=== PATIENT | female | born 1940 | race Caucasian/White ===

== ENCOUNTER 2019-10-19 12:05 | Inpatient (IN) | payer MEDICARE, MEDICAID, SELFPAY ==
[2019-10-19] VITALS (8 sets, daily range): BP systolic 129–175; BP diastolic 55–89; PULSE 75–95; RESP 15–20; TEMP 36.6–36.7; O2SAT 95–100; BMI 32.5
--- NOTE | ~2019-10-19 | XR_ITS ---
EXAMINATION: XR chest 2V DATE: 10/21/2019 10:34 INDICATION: Worsening abdominal breath sounds. TECHNIQUE: Frontal and lateral views of the chest were obtained. COMPARISON: Chest 2 views 10/19/2019 FINDINGS: There is pleural thickening in left mid and upper lung zones with adjacent mild scarring. T here are airspace opacities in right lower lung zone. No pleural effusion or pneumothorax. The heart size is normal. There are old healed right rib fractures. IMPRESSION: 1. Worsened airspace opacities in right lower lung zone, consistent with atelectasis versus pneumonia . 2. Mild scarring at left mid and upper lung zones. Reviewed, dictated and finalized at location A. IMPRESSION: 1. Worsened airspace opacities in right lower lung zone, consistent with atelec tasis versus pneumonia. 2. Mild scarring at left mid and upper lung zones.
--- NOTE | ~2019-10-19 | US_ITS ---
EXAMINATION: US venous doppler [facility] DATE: 10/20/2019 11:01 INDICATION: Lower limb edema. TECHNIQUE: Grayscale ultrasound images without and with compression and Doppler ultrasound images of the bilateral lower extremity veins were obtained. COMPARISON: None. FINDINGS: The visualized portions of right common femoral vein, profunda (deep) femoral vein, femoral vein, pop liteal vein, peroneal veins, posterior tibial veins, and greater saphenous vein outflow are patent. The visualized portions of left common femoral vein, profunda femoral vein, femoral vein, popliteal v ein, peroneal veins, posterior tibial veins, and greater saphenous vein outflow are patent. IMPRESSION: 1. No deep venous thrombosis. Reviewed, dictated and finalized at location A.
--- NOTE | ~2019-10-19 | US_ITS ---
EXAMINATION: US right upper quadrant DATE: 10/20/2019 11:01 INDICATION: Abnormal liver function tests. TECHNIQUE: Multiple grayscale and Doppler ultrasound images of the abdomen were obtained. COMPARISON: Ultrasound 06/16/2017 FINDINGS: The visualized portions of the head of the pancreas are normal. The liver is normal without focal lesion. No liver surface nodularity. There is normal flow in main portal vein. The gallbladder is absent. The common duct is normal and measures 5 mm. IMPRESSION: 1. Normal right upper quadrant ultrasound status post cholecystectomy. Reviewed, dictated and finalized at location A.
--- NOTE | ~2019-10-19 | XR_ITS ---
EXAMINATION: XR chest 2V DATE: 10/19/2019 14:35 INDICATION: Hypoglycemia. TECHNIQUE: Frontal and lateral views of the chest were obtained. COMPARISON: Chest single view 07/23/2017 FINDINGS: There is chronic mild pleural thickening at left mid and upper lung zones with adjacent chr onic mild scarring. There are mild airspace opacities in the lower lung zones. No pleural effusion or pneumothorax. The heart size is normal. There are old healed right rib fractures. Surgical clips in the right upper quadrant are likely from cholecystectomy. IMPRESSION: 1. Mild airspace opacities in the lower lung zones, consistent with atelectasis versus pneumonia. 2. Mild scarring in left mid and upper lung zones. Reviewed, dictated and finalized at location A.
[2019-10-19 12:15] LABS: Glucose Point of Care 201 (65-105)
[2019-10-19 13:22] LABS: Basophils Absolute Auto 0.1 K/mm3 (0.0-0.1); Basophils Percent Auto 0.3 % (0.2-1.2); Eosinophils Absolute Auto 0.1 K/mm3 (0-0.3); Eosinophils Percent Auto 0.2 % (0-4.4); Hematocrit 35.9 % (37.0-47.0); Hemoglobin 12.5 g/dL (12.0-15.0); Immature Granulocyte Absolute 0.28 K/mm3 (0.00-0.031); Lymphocytes Percent Auto 5.2 % (18.3-44.2); Mean Corpuscular HGB Conc 34.8 g/dl (32-36); Mean Corpuscular Hemoglobin 32.2 pg (26-34); Mean Corpuscular Volume 92.5 fl (80-100); Mean Platelet Volume 11.9 fl (7.4-10.4); Monocytes Absolute Auto 1.7 K/mm3 (0.1-0.6); Monocytes Percent Auto 6.2 % (2.6-8.5); Neutrophils Absolute Auto 23.6 K/mm3 (1.3-6.7); Neutrophils Percent Auto 87.1 % (45.5-73.1); Platelet Count Result 193 k/mm3 (150-375); Red Blood Count 3.88 M/mm3 (4.2-5.4); Red Cell Distribution Width 12.9 % (11.5-14.5); White Blood Count 27.1 K/mm3 (4.5-10.0)
[2019-10-19 13:33] LABS: Blood Urea Nitrogen 22 mg/dL (7-17); Calcium 8.8 mg/dL (8.4-10.2); Carbon Dioxide 28 mmol/L (22-30); Chloride 98 mmol/L (98-107); Estimated CRCL calculation 46 ml/min; Estimated Glomerular Filt Rate 60; Glucose 164 mg/dL (65-105); Potassium 4.2 mmol/L (3.4-5.0); Sodium 137 mmol/L (137-145)
[2019-10-19 14:19] LABS: Add Urine Microscopic? YES; Appearance Urine Clear (Clear); Bilirubin Urine Negative (Negative); Blood Urine Negative (Negative); Color Urine Straw (Yellow); Glucose Urine UA 1+ mg/dL (Negative); Ketones Urine Negative (Negative); Leukocyte Esterase Ur Negative LEU/UL (Negative); Mucus Urine Rare /lpf; Nitrate Urine Negative (Negative); Protein Urine Negative (Negative); Specific Grav Ur 1.011 (1.001-1.035); Squamous Epithelial Cell Urine Rare /hpf (Few); Urobilinogen Urine Negative mg/dL (<2.0); WBC Urine 0-3 /hpf
[2019-10-19 14:30] LABS: Glucose Point of Care 233 (65-105)
--- NOTE | 2019-10-19 15:07 | ED.RECABL ---
HPI - Recheck/Abnormal Lab/Rx General Chief Complaint: Recheck/Abnormal Lab/Rx Stated Complaint: LOW BLOOD SUGAR History of Present Illness HPI narrative: Patient is an 79-year-old schizophrenic who presents the ER with hypoglycemia. She is diabetic. She reports she ate breakfast this morning but is also reporting that her fingers are snakes. History is fairly limited. Daughter present reports that she has been sneezing more than usual but has not seen her mom for months. Patient received glucagon as well as D10 and her blood sugars normalized at this time. Patient reported to the nurse that she ate eggs but told me she ate a doughnut. Related Data Allergies Allergy/AdvReac Type Severity Reaction Status Date / Time Penicillins Allergy Mild Unknown Unverified 04/08/19 08:20 sulfamethoxazole Allergy Unknown Unknown Unverified 04/08/19 08:20 trimethoprim Allergy Unknown Unknown Unverified 04/08/19 08:20 Review of Systems Review of Systems: ROS unobtainable: Yes unobtainable due to mental status PMFSH Past Medical History Medical History (Updated 10/19/19 @ 15:32 by Frankie Quevedo MD) Alzheimers disease Anxiety CHF (congestive heart failure) Constipation Dementia Diabetes Gall stones HLD (hyperlipidemia) HTN (hypertension) Hypothyroidism Pneumonia Schizophrenia Surgical History Surgical History (Updated 04/08/19 @ 08:59 by Mary Beth Oviedo) No significant past surgical history Social History Social History (Updated 04/08/19 @ 08:59 by Mary Beth Oviedo) Smoking status: Unknown if ever smoked Gender identity (if verbalized by the patient): Female Exam Narrative: Exam Narrative: GENERAL: Well-appearing, well-nourished, and in no acute distress. HEAD: Normocephalic, atraumatic. ENT: NMucous membranes moist. NECK: Supple. CHEST: Clear to auscultation. No respiratory distress. HEART: Regular rate and rhythm. Normal peripheral pulses. ABDOMEN: Soft, nontender, nondistended. EXTREMITIES: Normal range of motion. No edema. SKIN: Warm, dry, no rash. NEURO: Alert and oriented x1. Course Course Emergency Course: Admit to the hospitalist service given significant leukocytosis with hyperglycemia and concerns for pneumonia. IV antibiotics ordered. We will also order a COVID swab so patient can be placed in a longterm at the request of the daughter. Vital Signs Vital signs: Vital Signs Temperature 97.8 F 10/19/19 12:15 Pulse Rate 77 10/19/19 12:15 Respiratory Rate 17 10/19/19 12:15 Blood Pressure 129/79 10/19/19 12:15 Pulse Oximetry 100 10/19/19 12:15 Temperature 97.8 F 10/19/19 12:15 Pulse Rate 77 10/19/19 12:15 Respiratory Rate 17 10/19/19 12:15 Blood Pressure 129/79 10/19/19 12:15 Pulse Oximetry 100 10/19/19 12:15 MDM - Recheck/Abnormal Lab/Rx Lab Data Result diagrams: 10/19/19 13:13 10/19/19 13:13 Labs: Lab Results 10/19/19 10/19/19 10/19/19 Range/Units 12:12 13:13 13:13 WBC 27.1 H (4.5-10.0) K/mm3 RBC 3.88 L (4.2-5.4) M/mm3 Hgb 12.5 (12.0-15.0) g/dL Hct 35.9 L (37.0-47.0) % MCV 92.5 (80-100) fl MCH 32.2 (26-34) pg MCHC 34.8 (32-36) g/dl RDW 12.9 (11.5-14.5) % Plt Count 193 (150-375) k/mm3 MPV 11.9 H (7.4-10.4) fl Immature Gran % (Auto) 1.0 H (0-0.5) % Neut % (Auto) 87.1 H (45.5-73.1) % Lymph % (Auto) 5.2 L (18.3-44.2) % Grand % (Auto) 6.2 (2.6-8.5) % Eos % (Auto) 0.2 (0-4.4) % Baso % (Auto) 0.3 (0.2-1.2) % Lymph # (Auto) 1.40 (0.9-3.2) K/mm3 Grand # (Auto) 1.7 H (0.1-0.6) K/mm3 Eos # (Auto) 0.1 (0-0.3) K/mm3 Baso # (Auto) 0.1 (0.0-0.1) K/mm3 Abs Immat Gran (auto) 0.28 H (0.00-0.031) K/mm3 Absolute Neuts (auto) 23.6 H (1.3-6.7) K/mm3 Absolute Nucleated RBC 0.0 (0.0-0.012) K/mm3 Nucleated RBC % 0.0 (0.0-0.2) % Sodium 137 (137-145) mmol/L Potassium 4.2 (3.4-5.0) mmol/L Chloride 98 (9
--- NOTE | 2019-10-19 17:09 | PC.NURSE ---
This RN into pts room to change depends. Pt tried to kick this RN when pulling down her pants
--- NOTE | 2019-10-19 17:15 | PC.NURSE ---
This patient, Sarahy Real, was admitted to [facility] Room 332-01. Patient/family oriented to hospital policies and general routines including ID bracelet, bed and alarms, visiting hours, pain management, procedures, bathroom and other care routines, personal items, smoking policy, room service/diet, and visiting hours. Valuables list has been completed. Information on how to activate the Rapid Response Team has been discussed. Patient/Family are encouraged to report perceived risks to care and to ask questions if they do not understand what they are told or what they should do.
[2019-10-19 17:17] LABS: Hemoglobin A1C 6.9 % (<5.7)
[2019-10-19] MEDS: SODIUM CHLORIDE 0.9% IV 1,000 ML 100 ML IV CONT (18:11)
[2019-10-19] MEDS: INSULIN ASPART (*BKC) 100 UNITS/ML SUB-Q (18:12)
[2019-10-19 18:35] LABS: Glucose Point of Care 220 (65-105)
[2019-10-19 19:10] LABS: Alanine Aminotransferase 39 U/L (4-35); Albumin Level 3.7 g/dL (3.5-5.1); Alkaline Phosphatase 139 U/L (38-126); Aspartate Amino Transferase 56 U/L (14-36); Bilirubin,Total 0.3 mg/dL (0.2-1.3); Lactate Dehydrogenase 407 U/L (313-618)
--- NOTE | 2019-10-19 20:00 | PM.IMHP ---
H&P: HPI History of Present Illness Chief complaint: Hypoglycemia. Narrative: Sarahy Real is an 82-year-old female with insulin-dependent type 2 diabetes mellitus, schizophrenia, and hypertension who presented to the emergency department earlier today via EMS from [facility] for evaluation of hyperglycemia. She is not able to provide an accurate history due to her schizophrenia and dementia, as she answers every question that I ask her inappropriately and with bizarre answers. As such, a majority of this history is obtained via a review of her electronic medical records. According to the EMS run report, she was given her insulin this morning before breakfast and not long prior to arrival she was found unconscious and diaphoretic with a glucose of 22. She was given glucagon and EMS was summoned. On their arrival her glucose was 37 and a D10 infusion was started with improvement in mentation. At the time my evaluation she is awake and appears to be watching television. She is aware that she is in a hospital but she does not know why she was brought here. Throughout our conversation she randomly describes children that are at the foot of her bed or she begins referring to her fingers as snakes. Chest x-ray done emergency department was read as having airspace opacities in the lower lung zones consistent with atelectasis versus pneumonia. [place] [id number]. I was told that there several cases of COVID-19 at her care facility, and she is being admitted in this setting. She has no complaints at the time of my evaluation. Review of Systems Review of Systems: Narrative: A review of systems is unable to be obtained accurately given her dementia and schizophrenia. [facility] Past Medical History Medical History (Updated 10/19/19 @ 22:56 by Mairanne Madrid PA-C) Anxiety Congestive heart failure Poorly documented history of such. Dementia Gastroesophageal reflux disease Hyperlipidemia Hypertension Hypothyroidism Insulin dependent type 2 diabetes mellitus Schizophrenia Urinary tract infection due to extended-spectrum beta lactamase (ESBL) producing Escherichia coli Vitamin D deficiency Surgical History Surgical History (Updated 10/19/19 @ 15:51 by Marianne Madrid PA-C) History of cholecystectomy History of hysterectomy Family History Family History (Updated 10/19/19 @ 15:52 by Marianne Madrid PA-C) Father Tuberculosis Mother Tuberculosis Other Cancer Social History Social History (Updated 10/19/19 @ 22:56 by Marianne Madrid PA-C) Social History: She is a long-term resident at [facility]. Her daughter, Angela Gardner, is her healthcare power of ip technology transactions attorney. No mention of alcohol, tobacco, or drug use. Smoking status: Unknown if ever smoked Alcohol intake: never Substance use: never Gender identity (if verbalized by the patient): Female Spiritual care concerns: No Meds Home Medications and Allergies Home Medications Medication Instructions Recorded Confirmed Type acetaminophen 650 mg PO Q4H PRN 10/19/19 10/19/19 History aspirin [Aspirin Childrens] 81 mg PO DAILY 10/19/19 10/19/19 History clopidogrel 75 mg PO DAILY 10/19/19 10/19/19 History ergocalciferol (vitamin D2) 1,250 mcg PO WEEKLY 10/19/19 10/19/19 History [Vitamin D2] furosemide 40 mg PO DAILY 10/19/19 10/19/19 History glucagon HCl [Glucagon (HCl) 1 mg IM PRN PRN 10/19/19 10/19/19 History Emergency Kit] insulin NPH and regular human 20 unit SUBCUT HS 10/19/19 10/19/19 History [Novolin 70/30 U-100 Insulin] insulin NPH and regular human 29 unit SUBCUT DAILY 10/19/19 10/19/19 History [Novolin 70/30 U-100 Insulin] insulin aspart U-100 [Novolog 1 sliding scale dose SUBCUT 10/19/19 10/19/19 History U-100 Insulin aspart] USEASDIRECTD levothyroxine 100 mcg PO DAILY 10/19/19 10/19/19 History lisinopril 20 mg PO DAILY 10/19/19 10/19/19 History lop
[2019-10-19 23:30] LABS: Glucose Point of Care 152 (65-105)
[2019-10-19] MEDS: MAGNESIUM SULF 1 GM/D5W 100 ML 1 GM/100 ML BAG IVPB (23:55)
[2019-10-19] MEDS: MAGNESIUM SULF 2 GM/WATER 50ML 2 GM/50 ML BAG IVPB (23:55)
[2019-10-20] VITALS (7 sets, daily range): BP systolic 114–130; BP diastolic 41–63; PULSE 80–88; RESP 16–22; TEMP 36.2–37.1; O2SAT 94–96
[2019-10-20 03:17] LABS: Glucose Point of Care 196 (65-105)
[2019-10-20 06:44] LABS: Basophils Absolute Auto 0.1 K/mm3 (0.0-0.1); Basophils Percent Auto 0.5 % (0.2-1.2); Eosinophils Absolute Auto 0.1 K/mm3 (0-0.3); Eosinophils Percent Auto 1.1 % (0-4.4); Hematocrit 29.2 % (37.0-47.0); Hemoglobin 10.3 g/dL (12.0-15.0); Immature Granulocyte Absolute 0.04 K/mm3 (0.00-0.031); Immature Granulocyte Percent A 0.4 % (0-0.5); Mean Corpuscular HGB Conc 35.3 g/dl (32-36); Mean Corpuscular Volume 90.7 fl (80-100); Mean Platelet Volume 11.9 fl (7.4-10.4); Monocytes Absolute Auto 1.1 K/mm3 (0.1-0.6); Monocytes Percent Auto 11.2 % (2.6-8.5); Neutrophils Absolute Auto 6.3 K/mm3 (1.3-6.7); Neutrophils Percent Auto 62.8 % (45.5-73.1); Platelet Count Result 162 k/mm3 (150-375); Red Blood Count 3.22 M/mm3 (4.2-5.4); Red Cell Distribution Width 12.5 % (11.5-14.5)
[2019-10-20 06:56] LABS: Alanine Aminotransferase 36 U/L (4-35); Albumin Level 3.1 g/dL (3.5-5.1); Alkaline Phosphatase 125 U/L (38-126); Aspartate Amino Transferase 40 U/L (14-36); Bilirubin,Total 0.6 mg/dL (0.2-1.3); Blood Urea Nitrogen 19 mg/dL (7-17); Carbon Dioxide 27 mmol/L (22-30); Chloride 99 mmol/L (98-107); Estimated CRCL calculation 51 ml/min; Estimated Glomerular Filt Rate > 60; Glucose 184 mg/dL (65-105); Potassium 4.7 mmol/L (3.4-5.0); Sodium 132 mmol/L (137-145)
[2019-10-20] MEDS: LEVOTHYROXINE SODIUM 100 MCG TABLET PO (07:01)
[2019-10-20 07:50] LABS: Hepatitis B Surface Antigen Negative (Negative)
[2019-10-20 07:56] LABS: HAV RESULT Negative (Negative); Hepatitis B Core IgM Result Negative (Negative)
[2019-10-20 08:08] LABS: Hepatitis C Virus Antibody Negative (Negative)
[2019-10-20] MEDS: FUROSEMIDE 40 MG TABLET PO (08:59)
[2019-10-20] MEDS: CLOPIDOGREL BISULFATE 75 MG TABLET PO (09:00)
[2019-10-20] MEDS: METOPROLOL SUCCINATE EXT REL 50 MG TABCR PO (09:00)
[2019-10-20] MEDS: lisinopriL 20 MG TABLET PO (09:01)
[2019-10-20] MEDS: PANTOPRAZOLE SOD SESQUIHYDRATE 20 MG TAB PO (09:01)
[2019-10-20] MEDS: ASPIRIN 81 MG CHEWABLE TABLET PO (09:01)
[2019-10-20 09:38] LABS: Glucose Point of Care 200 (65-105)
[2019-10-20] MEDS: INSULIN ASPART (*BKC) 100 UNITS/ML SUB-Q ×2 (12:10→17:32)
[2019-10-20 12:15] LABS: Glucose Point of Care 218 (65-105)
[2019-10-20 13:39] LABS: SARS-CoV-2 RNA PCR Negative
--- NOTE | 2019-10-20 15:48 | PM.IMPN ---
Progress Note: A&P Assessment and Plan (1) Leukocytosis: Code(s): D72.829 - Elevated white blood cell count, unspecified Status: Acute Assessment and Plan: -----resolved today. Etiology could be stress response from hypoglycemic event or possibly pneumonia. Chest x-ray shows possible pneumonia and the patient has coarse crackles. She has not had fever since being here. Will continue ceftriaxone and azithromycin at this time. She had no abdominal pain on my exam and the right upper quadrant ultrasound is normal. She had 1 episode of liquid diarrhea and I have asked the nurse to let me know if she has any additional diarrhea episodes and we can send it for C diff testing but this seems less likely at this time. Continue to monitor. COVID-19 negative. (2) Hypoglycemia: Code(s): E16.2 - Hypoglycemia, unspecified Status: Acute Assessment and Plan: -----patient is severely demented and is 79 years old. Her A1c is 6.9. This is a little too tightly controlled and we are going to decrease her insulin at discharge. For now will continue sliding scale insulin. She was given glucagon and D10 infusion yesterday. (3) Insulin dependent type 2 diabetes mellitus: Code(s): E11.9 - Type 2 diabetes mellitus without complications; Z79.4 - senior care (current) use of insulin Status: Acute Assessment and Plan: -----see above. (4) Schizophrenia: Code(s): F20.9 - Schizophrenia, unspecified Status: Acute Assessment and Plan: -----patient is calm and collective today. Continue olanzapine and valproic acid. (5) Hypothyroidism: Code(s): E03.9 - Hypothyroidism, unspecified Status: Acute Assessment and Plan: -----. Continue levothyroxine (6) Gastroesophageal reflux disease: Code(s): K21.9 - Gastro-esophageal reflux disease without esophagitis Status: Acute Assessment and Plan: -----continue pantoprazole. Time Spent With Patient Time with patient: 25 - 35 minutes Subjective Date/time seen: 10/20/19 15:48 Interval history: Pt is a significantly demented 79-year-old here for hypoglycemia and pneumonia. Patient was seen today and is not able to hold a fluent conversation. She answers yes to all of my questions. RN, Rochelle, states that the group home says that she is alert and oriented to herself only and often hallucinates and does not make much sense. No events overnight reported by nursing staff. Review of Systems Review of Systems: All systems reviewed & are unremarkable except as noted in HPI and below Exam Narrative: Exam Narrative: General: Elderly patient resting comfortably in bed in no acute distress HEENT: normocephalic Neck: supple Neuro: Alert and oriented to herself only. She did not know where she was, her birthday, or the year. She had 5/5 strength in the upper and lower extremities. She would not cooperate for a cranial nerve exam. CV:RRR Resp: Coarse crackles worse in the left lung also heard in the right. No wheezing. Patient had no conversational dyspnea or retractions Abd: Soft, non distended. No pain to palpation. Positive bowel sounds Extremities: No swelling, erythema, or pain to palpation. Objective Data Vital Signs Vital Signs: Vital Signs - 24 hr 10/19/19 17:07 10/19/19 17:15 10/19/19 18:00 Temperature 98.0 F 98.1 F Pulse Rate 75 87 95 Respiratory Rate 18 18 18 Blood Pressure 162/89 H 154/55 H 141/67 H Pulse Oximetry 100 98 99 10/19/19 19:45 10/19/19 22:00 10/20/19 02:00 Temperature 98 F 98.6 F Pulse Rate 95 83 Respiratory Rate 20 20 Blood Pressure 156/75 H 117/50 L Pulse Oximetry 95 95 94 10/20/19 06:00 10/20/19 09:00 10/20/19 10:00 Temperature 98.7 F 98.5 F Pulse Rate 82 80 88 Respiratory Rate 20 18 Blood Pressure 130/63 118/47 L Pulse Oximetry 95 95 10/20/19 14:00 Temperature 97.1 F L Pulse Rate 84 Respiratory Rate 22
[2019-10-20 17:35] LABS: Glucose Point of Care 286 (65-105)
[2019-10-20 23:01] LABS: Glucose Point of Care 227 (65-105)
[2019-10-21 02:00] VITALS: BP 138/46; PULSE 81; RESP 18; TEMP 36.2; O2SAT 98
[2019-10-21 06:00] VITALS: BP 121/49; PULSE 78; RESP 18; TEMP 36.7; O2SAT 96
[2019-10-21] MEDS: LEVOTHYROXINE SODIUM 100 MCG TABLET PO (06:00)
[2019-10-21 06:34] LABS: Hematocrit 30.5 % (37.0-47.0); Hemoglobin 10.4 g/dL (12.0-15.0); Mean Corpuscular HGB Conc 34.1 g/dl (32-36); Mean Corpuscular Hemoglobin 31.5 pg (26-34); Mean Corpuscular Volume 92.4 fl (80-100); Mean Platelet Volume 12.5 fl (7.4-10.4); Platelet Count Result 165 k/mm3 (150-375); Red Cell Distribution Width 12.6 % (11.5-14.5); White Blood Count 7.7 K/mm3 (4.5-10.0)
[2019-10-21 06:54] LABS: Alanine Aminotransferase 39 U/L (4-35); Albumin Level 3.1 g/dL (3.5-5.1); Alkaline Phosphatase 121 U/L (38-126); Aspartate Amino Transferase 36 U/L (14-36); Bilirubin,Total 0.2 mg/dL (0.2-1.3); Blood Urea Nitrogen 20 mg/dL (7-17); Calcium 8.2 mg/dL (8.4-10.2); Carbon Dioxide 26 mmol/L (22-30); Chloride 104 mmol/L (98-107); Estimated CRCL calculation 45 ml/min; Estimated Glomerular Filt Rate 60; Glucose 192 mg/dL (65-105); Magnesium 1.7 mg/dL (1.6-2.3); Phosphorus 3.5 mg/dL (2.5-4.5); Potassium 5.1 mmol/L (3.4-5.0); Sodium 135 mmol/L (137-145)
[2019-10-21 08:28] LABS: Glucose Point of Care 211 (65-105)
[2019-10-21 09:09] VITALS: PULSE 68
[2019-10-21] MEDS: METOPROLOL SUCCINATE EXT REL 50 MG TABCR PO (09:09)
[2019-10-21] MEDS: PANTOPRAZOLE SOD SESQUIHYDRATE 20 MG TAB PO (09:09)
[2019-10-21] MEDS: CLOPIDOGREL BISULFATE 75 MG TABLET PO (09:09)
[2019-10-21] MEDS: ASPIRIN 81 MG CHEWABLE TABLET PO (09:09)
--- NOTE | 2019-10-21 09:10 | PM.IMPN ---
Progress Note: A&P Assessment and Plan (1) Leukocytosis: Code(s): D72.829 - Elevated white blood cell count, unspecified Status: Acute Assessment and Plan: -----resolved today. Etiology could be stress response from hypoglycemic event or possibly pneumonia. Chest x-ray shows possible pneumonia and the patient has coarse crackles. She has not had fever since being here. Will continue ceftriaxone and azithromycin at this time. She had no abdominal pain on my exam and the right upper quadrant ultrasound is normal. No diarrhea at this time. COVID-19 negative. I am going to repeat a chest x-ray and do a swallow study since the patient is severely demented and her lungs sound worse today. If these are better she may be able to discharge tomorrow back to her [facility]. (2) Hypoglycemia: Code(s): E16.2 - Hypoglycemia, unspecified Status: Acute Assessment and Plan: -----patient is severely demented and is 79 years old. Her A1c is 6.9. This is a little too tightly controlled and we are going to decrease her insulin at discharge. For now will continue sliding scale insulin. She was given glucagon and D10 infusion on admission. will restart lower dose nph. She ate her entire breakfast today. (3) Insulin dependent type 2 diabetes mellitus: Code(s): E11.9 - Type 2 diabetes mellitus without complications; Z79.4 - [facility] (current) use of insulin Status: Acute Assessment and Plan: -----see above. (4) Schizophrenia: Code(s): F20.9 - Schizophrenia, unspecified Status: Acute Assessment and Plan: -----patient is calm and collective today. Continue olanzapine and valproic acid. (5) Hypothyroidism: Code(s): E03.9 - Hypothyroidism, unspecified Status: Acute Assessment and Plan: -----. Continue levothyroxine (6) Gastroesophageal reflux disease: Code(s): K21.9 - Gastro-esophageal reflux disease without esophagitis Status: Acute Assessment and Plan: -----continue pantoprazole. (7) Pneumonia: Code(s): J18.9 - Pneumonia, unspecified organism Status: Acute Assessment and Plan: -----as stated above, patient is receiving ceftriaxone and azithromycin. Plan for swallow study today as well as a chest x-ray. (8) Hyperkalemia: Code(s): E87.5 - Hyperkalemia Status: Acute Assessment and Plan: -----patient has a history of this. It is mild and does not he be treated at this time. Will hold lisinopril and placed on a low-potassium diet. Recheck tomorrow. Subjective Date/time seen: 10/21/19 09:10 Interval history: Pt is a significantly demented 79-year-old here for hypoglycemia and pneumonia. Pt was seen today and is still pleasantly confused. She says her back hurts but when I straightened up her bed, if felt much better. She is eating and drinking fine. She has no complaints. Although she is an unreliable historian, she denies chest pain or shortness of breath today. Exam Narrative: Exam Narrative: General: Elderly patient resting comfortably in bed in no acute distress HEENT: normocephalic Neck: supple Neuro: Alert and oriented to herself only. She did not know where she was, her birthday, or the year. She had 5/5 strength in the upper and lower extremities. CV:RRR Resp: Coarse crackles worse in the left lung also heard in the right. No wheezing. Patient had no conversational dyspnea or retractions Abd: Soft, non distended. No pain to palpation. Positive bowel sounds Extremities: No swelling, erythema, or pain to palpation. Objective Data Vital Signs Vital Signs: Vital Signs - 24 hr 10/20/19 10:00 10/20/19 14:00 10/20/19 18:00 Temperature 98.5 F 97.1 F L 97.5 F L Pulse Rate 88 84 85 Respiratory Rate 18 22 H 20 Blood Pressure 118/47 L 122/58 L 120/54 L Pulse Oximetry 95 96 96 10/20/19 22:00 10/21/19 02:00 10/21/19 06:00 [place]
[2019-10-21] MEDS: INSULIN ASPART (*BKC) 100 UNITS/ML SUB-Q ×3 (09:11→17:31)
[2019-10-21] MEDS: FUROSEMIDE 40 MG TABLET PO (09:11)
[2019-10-21 10:00] VITALS: BP 146/51; PULSE 89; RESP 20; TEMP 36.6; O2SAT 98
--- NOTE | 2019-10-21 12:09 | PCSTNOTE ---
Bedside swallow study completed. Please see ST evaluation for further details.
[2019-10-21 12:11] LABS: Glucose Point of Care 305 (65-105)
[2019-10-21 14:00] VITALS: BP 118/58; PULSE 82; RESP 18; TEMP 36.7; O2SAT 99
[2019-10-21] MEDS: INSULIN HUMAN NPH (*BKC) 100 UNITS/ML 6 UNITS SUB-Q (17:34)
[2019-10-21 18:27] LABS: Glucose Point of Care 240 (65-105)
[2019-10-21 21:10] LABS: Glucose Point of Care 282 (65-105)
[2019-10-21 22:00] VITALS: BP 128/49; PULSE 76; RESP 16; TEMP 36.9; O2SAT 98
[2019-10-22] MEDS: LEVOTHYROXINE SODIUM 100 MCG TABLET PO (05:37)
[2019-10-22 06:00] VITALS: BP 127/30; PULSE 73; RESP 18; TEMP 36.5; O2SAT 100
[2019-10-22 06:45] LABS: Blood Urea Nitrogen 18 mg/dL (7-17); Calcium 8.3 mg/dL (8.4-10.2); Carbon Dioxide 29 mmol/L (22-30); Chloride 103 mmol/L (98-107); Estimated CRCL calculation 57 ml/min; Estimated Glomerular Filt Rate > 60; Glucose 174 mg/dL (65-105); Potassium 4.6 mmol/L (3.4-5.0); Sodium 136 mmol/L (137-145)
[2019-10-22] MEDS: INSULIN HUMAN NPH (*BKC) 100 UNITS/ML 6 UNITS SUB-Q (08:11)
[2019-10-22 08:14] LABS: Glucose Point of Care 190 (65-105)
[2019-10-22] MEDS: CLOPIDOGREL BISULFATE 75 MG TABLET PO (08:14)
[2019-10-22] MEDS: ASPIRIN 81 MG CHEWABLE TABLET PO (08:14)
[2019-10-22] MEDS: PANTOPRAZOLE SOD SESQUIHYDRATE 20 MG TAB PO (08:14)
[2019-10-22 08:20] VITALS: BP 150/66; PULSE 88
[2019-10-22 08:22] VITALS: PULSE 88
[2019-10-22] MEDS: FUROSEMIDE 40 MG TABLET PO (08:22)
[2019-10-22] MEDS: METOPROLOL SUCCINATE EXT REL 50 MG TABCR PO (08:22)
[2019-10-22] MEDS: INSULIN ASPART (*BKC) 100 UNITS/ML SUB-Q ×2 (12:30→17:39)
[2019-10-22 12:54] LABS: Glucose Point of Care 313 (65-105)
[2019-10-22 14:00] VITALS: BP 136/69; PULSE 71; RESP 20; TEMP 36.2; O2SAT 97
--- NOTE | 2019-10-22 14:13 | PM.IMPN ---
Progress Note: A&P Assessment and Plan (1) Leukocytosis: Code(s): D72.829 - Elevated white blood cell count, unspecified Status: Acute Assessment and Plan: -----resolved today. Although it does not show up in the labs, if you go to the lab section and click on the word WBC it will show that she was at 27,000 on admission. Etiology could be stress response from hypoglycemic event or possibly pneumonia. Chest x-ray shows pneumonia and the patient has coarse crackles. She has not had a fever since being here. Will continue ceftriaxone and azithromycin at this time. She had no abdominal pain on my exam and the right upper quadrant ultrasound is normal. No diarrhea at this time. COVID-19 negative. (2) Pneumonia: Code(s): J18.9 - Pneumonia, unspecified organism Status: Acute Assessment and Plan: -----as stated above, patient is receiving ceftriaxone and azithromycin. CXR yesterday showed worsening PNA so she will be kept and monitored for another day or so. Her lung exam sounded better today compared to yesterday. I had ST see her and they said she had no aspiration risk. COVID neg. (3) Hypoglycemia: Code(s): E16.2 - Hypoglycemia, unspecified Status: Acute Assessment and Plan: -----patient is severely demented and is 79 years old. Her A1c is 6.9. This is a little too tightly controlled and we are going to decrease her insulin at discharge. For now will continue sliding scale insulin. She was given glucagon and D10 infusion on admission. NPH was restarted yesterday but she is 313 today so I will increase it again. She may have had the hypoglycemic event from lack of eating from her PNA and now that she is being treated she is eating more. 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 (5) Schizophrenia: Code(s): F20.9 - Schizophrenia, unspecified Status: Acute Assessment and Plan: -----patient is calm and collective today. Continue olanzapine and valproic acid. (6) Hypothyroidism: Code(s): E03.9 - Hypothyroidism, unspecified Status: Acute Assessment and Plan: -----. Continue levothyroxine (7) Gastroesophageal reflux disease: Code(s): K21.9 - Gastro-esophageal reflux disease without esophagitis Status: Acute Assessment and Plan: -----continue pantoprazole. (8) Hyperkalemia: Code(s): E87.5 - Hyperkalemia Status: Acute Assessment and Plan: -----elevated 10/20 but WNL today. patient has a history of this. She was not treated but her lisinopril was held and she was placed on a low potassium diet. Subjective Date/time seen: 10/22/19 14:13 Interval history: Pt is a significantly demented 79-year-old here for hypoglycemia and pneumonia. Pt was seen today and is still pleasantly confused. She has no complaints today.No events from nursing staff overnight. Exam Narrative: Exam Narrative: General: Elderly patient resting comfortably in the chair eating lunch in no acute distress HEENT: normocephalic Neck: supple Neuro: Alert and oriented to herself and birthday. She did not know where she was, her birthday, or the year. She had 5/5 strength in the upper and lower extremities. CV:RRR Resp: Coarse crackles worse in the left lung also heard in the right but these have improved compared to yesterday. No wheezing. Patient had no conversational dyspnea or retractions Abd: Soft, non distended. No pain to palpation. Positive bowel sounds Extremities: No swelling, erythema, or pain to palpation. Objective Data Vital Signs Vital Signs: Vital Signs - 24 hr 10/21/19 22:00 10/22/19 06:00 10/22/19 08:20 Temperature 98.5 F 97.7 F Pulse Rate 76 73 88 Respiratory Rate 16 18 Bl
[2019-10-22] MEDS: INSULIN HUMAN NPH (*BKC) 100 UNITS/ML 10 UNITS SUB-Q (17:40)
[2019-10-22 18:15] LABS: Glucose Point of Care 318 (65-105)
[2019-10-22 22:00] VITALS: BP 129/41; PULSE 80; RESP 20; TEMP 36.6; O2SAT 95
[2019-10-22 22:12] LABS: Glucose Point of Care 326 (65-105)
[2019-10-23] MEDS: LEVOTHYROXINE SODIUM 100 MCG TABLET PO (05:59)
[2019-10-23 06:00] VITALS: BP 124/48; PULSE 73; RESP 18; TEMP 36.7; O2SAT 97
[2019-10-23 06:29] LABS: Hemoglobin 11.1 g/dL (12.0-15.0); Mean Corpuscular HGB Conc 34.7 g/dl (32-36); Mean Corpuscular Volume 92.2 fl (80-100); Mean Platelet Volume 12.1 fl (7.4-10.4); Platelet Count Result 171 k/mm3 (150-375); Red Blood Count 3.47 M/mm3 (4.2-5.4); Red Cell Distribution Width 12.5 % (11.5-14.5); White Blood Count 6.8 K/mm3 (4.5-10.0)
[2019-10-23 06:51] LABS: Blood Urea Nitrogen 17 mg/dL (7-17); CRP 2.4 mg/dL (<1.0); Calcium 8.4 mg/dL (8.4-10.2); Carbon Dioxide 29 mmol/L (22-30); Chloride 100 mmol/L (98-107); Estimated CRCL calculation 57 ml/min; Estimated Glomerular Filt Rate > 60; Glucose 176 mg/dL (65-105); Potassium 4.3 mmol/L (3.4-5.0); Sodium 134 mmol/L (137-145)
[2019-10-23 08:48] VITALS: PULSE 84
[2019-10-23] MEDS: FUROSEMIDE 40 MG TABLET PO (08:48)
[2019-10-23] MEDS: PANTOPRAZOLE SOD SESQUIHYDRATE 20 MG TAB PO (08:48)
[2019-10-23] MEDS: ASPIRIN 81 MG CHEWABLE TABLET PO (08:48)
[2019-10-23] MEDS: METOPROLOL SUCCINATE EXT REL 50 MG TABCR PO (08:48)
[2019-10-23] MEDS: CLOPIDOGREL BISULFATE 75 MG TABLET PO (08:48)
[2019-10-23] MEDS: INSULIN HUMAN NPH (*BKC) 100 UNITS/ML 10 UNITS SUB-Q (08:52)
[2019-10-23] MEDS: INSULIN ASPART (*BKC) 100 UNITS/ML SUB-Q ×2 (08:53→13:17)
[2019-10-23 09:52] LABS: Glucose Point of Care 214 (65-105)
--- NOTE | 2019-10-23 13:15 | PM.DS ---
DS: Admitting Diagnosis Admitting Diagnosis Admitting Diagnosis: Type 2 diabetes mellitus with hypoglycemia without coma DS: Discharge Diagnosis Discharge Diagnosis (1) Hypoglycemia: Code(s): E16.2 - Hypoglycemia, unspecified Status: Acute Assessment and Plan: Date of Service 10/23/19 Ms. Real is an 79yo F with dementia, schizophrenia, and insulin-dependent type 2 diabetes who presented to the ED from the longterm due to hypoglycemia. It was recorded that she had blood sugars in 20s at [place]. She was treated with glucagon and D10 on arrival. Her A1c is 6.9; given her age and dementia she was discharged with a new regimen of decreased insulin doses. Routine labs demonstrated a leukocytosis and she was noted to have coarse breath sounds. CTA chest demonstrated pneumonia and she was treated with IV azithromycin and rocephin. COVID-19 testing negative. She was otherwise stable and cognitively appeared to be at her baseline. Clinically she was improved with the therapy outlined above and was hemodynamically stable for discharge 10/23/19 with lower insulin doses and oral antibiotics to complete the course for treatment of pneumonia. (2) Pneumonia: Qualifiers: Pneumonia type: due to unspecified organism Laterality: unspecified laterality Lung location: unspecified part of lung Qualified Code(s): J18.9 - Pneumonia, unspecified organism Code(s): J18.9 - Pneumonia, unspecified organism Status: Acute Assessment and Plan: Treated with abx. Seen by speech therapy and passed bedside swallow evaluation with no signs or symptoms of aspiration. COVID negative. (3) Insulin dependent type 2 diabetes mellitus: Code(s): E11.9 - Type 2 diabetes mellitus without complications; Z79.4 - predatory animal exterminator (current) use of insulin Status: Acute Assessment and Plan: See above. (4) Schizophrenia: Qualifiers: Schizophrenia type: unspecified Qualified Code(s): F20.9 - Schizophrenia, unspecified Code(s): F20.9 - Schizophrenia, unspecified Status: Acute Assessment and Plan: Calm and cooperative day of discharge maintained on her home olanzapine and valproic acid. (5) Hypothyroidism: Qualifiers: Hypothyroidism type: acquired Qualified Code(s): E03.9 - Hypothyroidism, unspecified Code(s): E03.9 - Hypothyroidism, unspecified Status: Acute Assessment and Plan: Continue levothyroxine. (6) Gastroesophageal reflux disease: Qualifiers: Esophagitis presence: without esophagitis Qualified Code(s): K21.9 - Gastro-esophageal reflux disease without esophagitis Code(s): K21.9 - Gastro-esophageal reflux disease without esophagitis Status: Acute Assessment and Plan: No acute issues, continue PPI. (7) Hyperkalemia: Code(s): E87.5 - Hyperkalemia Status: Resolved Assessment and Plan: Resolved. DS: Summary Time Spent with Patient Time attestation: Total time spent providing and/or coordinating discharge services: 35 minutes Exam Narrative: Exam Narrative: Last Vital Signs Temp 98.4 F 10/23/19 14:00 Pulse 71 10/23/19 14:00 Resp 18 10/23/19 14:00 BP 134/55 L 10/23/19 14:00 Pulse Ox 99 10/23/19 14:00 General: Elderly female resting comfortably in bed in no acute distress. HEENT: normocephalic, EOMI, oral mucosa moist. Neck: supple Neuro: Alert and oriented to herself and birthday. No focal deficits appreciated. CV:RRR Resp: Coarse crackles worse in the left lung also heard in the right but these have improved compared to
[2019-10-23 13:22] LABS: Glucose Point of Care 226 (65-105)
[2019-10-23 14:00] VITALS: BP 134/55; PULSE 71; RESP 18; TEMP 36.9; O2SAT 99
== END 2019-10-23 16:15 | DRG 637 ==
LOC: ANHED 15:32 → ANH3MEDSUR 15:40
PROVIDERS: Physician Assistant; Admitting Provider Internal Medicine; Emergency Provider Emergency Medicine; PCP Emergency Medicine; Visit Provider Physician Assistant
DX: E11.649 Type 2 diabetes mellitus with hypoglycemia without coma (principal); J18.9 Pneumonia, unspecified organism; Z11.59 Encounter for screening for other viral diseases; I11.0 Hypertensive heart disease with heart failure; I50.9 Heart failure, unspecified; D72.829 Elevated white blood cell count, unspecified; F20.9 Schizophrenia, unspecified; E03.9 Hypothyroidism, unspecified; K21.9 Gastro-esophageal reflux disease without esophagitis; E87.5 Hyperkalemia; E55.9 Vitamin D deficiency, unspecified; E78.5 Hyperlipidemia, unspecified; F03.90 Unspecified dementia, unspecified severity, without behavioral disturbance, psychotic disturbance, mood disturbance, and anxiety; Z79.4 Long term (current) use of insulin; Z90.49 Acquired absence of other specified parts of digestive tract; Z90.710 Acquired absence of both cervix and uterus
CPT/HCPCS: 36415; 51701; 71046; 76705; 80048; 80074; 80076; 81001; 82728; 82948; 83036; 83615; 83735; 84100; 84443; 85025; 85027; 86140; 87040; 87635; 92610; 93970; 96361; 96365; 96366; 96367; 97162; 97166; 99285; A9270; C9803; G0378; J0456; J0696; J1815; J3475; J7030; U0003

== ENCOUNTER 2020-07-17 12:21 | Emergency (ER) | payer MEDICARE, MEDICAID, SELFPAY ==
--- NOTE | ~2020-07-17 | CT_ITS ---
EXAMINATION: CT cervical spine wo con EXAM DATE: 07/17/2020 12:47 INDICATION: Fall, head injury. TECHNIQUE: Spiral CT of the cervical spine was performed without contrast. Axial images were reviewe d. Coronal and sagittal reformatted images were also reviewed. The dose-length product (DLP) for thi s examination was 210.91 mGy-cm. The exposure was tailored according to patient size (auto mA exposu re control), and iterative reconstruction (ASIR) was used as additional dose reduction technique. Com parison is made to prior examination from 04/08/2019. FINDINGS: There is no evidence of acute cervical fracture. The odontoid process is intact. Pre-den s space is normal. Prevertebral soft tissue is normal. There are no soft tissue abnormalities ident ified. There is no disc space widening or traumatic vertebral body subluxation suspected. There is moderate disc disease at C5-6 and 6-7. There is mild reversal of the normal cervical lordosis which m ay be positional or spasm. There was cervical straightening not reversal on the prior examination. Th ere is bulky cervical facet arthropathy and moderate uncovertebral joint disease at C5-6 and 6-7. A d etailed level by level evaluation of spondylosis can be added as addendum if requested. IMPRESSION: 1. No acute cervical fracture. 2. Reversal of normal cervical lordosis could indicate spasm. 3. Advanced cervical facet arthropathy, moderate lower cervical disc disease. Reviewed, dictated and finalized at location A.
--- NOTE | ~2020-07-17 | CT_ITS ---
EXAMINATION: CT brain wo con DATE: 07/17/2020 12:47 INDICATION: Head injury post fall TECHNIQUE: Computed tomography (CT) of the head was performed without intravenous contrast. Sagittal and coronal reconstructions were performed. The mA was adjusted according to patient size. Iterative reconstruction technique was employed. The dose-length product was 605.33 mGy-cm. COMPARISON: head CT dated 04/08/2019 FINDINGS: Prominent right parietal scalp hematoma. No calvarial fracture. No acute intracranial hemorrhage, acu te infarction or abnormal extra axial fluid collection. There is mild scattered white matter hypoatte nuation consistent with chronic small vessel ischemic disease. Symmetric prominence of the sulci and ventricles consistent with moderateage-appropriate diffuse cerebral volume loss. Normal variant cavum septum pellucidum et vergae. No mass/mass effect. Changes of bilateral intraocular lens replacement. Dependently layering fluid or mucus in the left sphenoid sinus. Small left and trace right mastoid e ffusions. Intracranial calcified cerebral atherosclerosis is noted. Hyperostosis frontalis. IMPRESSION: 1. Right parietal scalp hematoma. No fracture or acute intracranial process. 2. Age-related changes including moderate diffuse volume loss and mild scattered white matter hypoatt enuation consistent with chronic small vessel ischemic disease. Reviewed, dictated and finalized at location B. IMPRESSION: 1. Right parietal scalp hematoma. No fracture or acute intracranial process. 2. Age-related changes including moderate diffuse volume loss and mild scattere d white matter hypoattenuation consistent with chronic small vessel ischemic di sease.
[2020-07-17 12:23] VITALS: BP 159/73; PULSE 96; RESP 18; TEMP 36.2; O2SAT 100
--- NOTE | 2020-07-17 12:25 | ED.FALL ---
HPI - Fall General Chief Complaint: Fall Stated Complaint: Fall - head injury Time Seen by Provider: 07/17/20 12:25 History of Present Illness HPI Narrative: 80 yo female w/ h/o Dementia presents to the ED after a fall. SHe had an unwitnessed fall some time this morning. Noted to have scalp hematoma. She is oriented to self only. She has no complaints and seems to be in good spirits. History limited due to dementia Related Data Home Medications Medication Instructions Recorded Confirmed Glucagon (HCl) Emergency Kit 1 mg IM PRN PRN 10/19/19 10/19/19 acetaminophen 650 mg PO Q4H PRN 10/19/19 10/19/19 aspirin [Aspirin Childrens] 81 mg PO DAILY 10/19/19 10/19/19 clopidogrel 75 mg PO DAILY 10/19/19 10/19/19 ergocalciferol (vitamin D2) 1,250 mcg PO WEEKLY 10/19/19 10/19/19 [Vitamin D2] furosemide 40 mg PO DAILY 10/19/19 10/19/19 insulin aspart U-100 [Novolog 1 sliding scale dose SUBCUT 10/19/19 10/19/19 U-100 Insulin aspart] USEASDIRECTD levothyroxine 100 mcg PO DAILY 10/19/19 10/19/19 lisinopril 20 mg PO DAILY 10/19/19 10/19/19 loperamide 2 mg PO QID PRN 10/19/19 10/19/19 metformin 500 mg PO BID 10/19/19 10/19/19 metoprolol succinate 50 mg PO DAILY 10/19/19 10/19/19 olanzapine 20 mg PO HS 10/19/19 10/19/19 pantoprazole 20 mg PO QAM 10/19/19 10/19/19 valproic acid (as sodium salt) 750 mg PO BID 10/19/19 10/19/19 Allergies Allergy/AdvReac Type Severity Reaction Status Date / Time Penicillins Allergy Mild Unknown Verified 10/19/19 18:47 sulfamethoxazole Allergy Unknown Unknown Verified 10/19/19 18:47 trimethoprim Allergy Unknown Unknown Verified 10/19/19 19:33 Review of Systems Review of Systems: ROS unobtainable: Yes unobtainable due to mental status PMFSH Past Medical History Medical History Anxiety Congestive heart failure Poorly documented history of such. Dementia Gastroesophageal reflux disease Hyperlipidemia Hypertension Hypothyroidism Insulin dependent type 2 diabetes mellitus Schizophrenia Urinary tract infection due to extended-spectrum beta lactamase (ESBL) producing Escherichia coli Vitamin D deficiency Surgical History Surgical History History of cholecystectomy History of hysterectomy Family History Family History Father Tuberculosis Mother Tuberculosis Other Cancer Social History Social History Social History: She is a long-term resident at [facility]. Her daughter, Angela Gardner, is her healthcare power of district attorney. No mention of alcohol, tobacco, or drug use. Smoking status: Unknown if ever smoked Alcohol intake: never Substance use: never Gender identity (if verbalized by the patient): Female Spiritual care concerns: No Exam Const: General: healthy appearing, no acute distress and alert Nutritional Appearance: well nourished HENMT: Head: hematoma right parietal Eyes: Conjunctivae: conjunctivae normal Pupils: Equal, round and reactive pupils present EOM: EOMs intact bilaterally Neck: Neck: normal visual inspection Resp: Effort & Inspection: normal respiratory effort Auscultation: clear to auscultation bilaterally Cardio: Rate: regular rate Rhythm: regular rhythm GI: GI Palp: Yes Soft to palpation and No Tenderness to palpation present (GI) Back/Spine/Pelvis: Other: no midline cervical tenderness Skin: General skin exam: normal color Wounds: no wounds Neuro: General: moves all extremities, no focal motor deficits and CN's II-XI intact bilaterally Speech: normal speech Other: oriented x1 Extrem: General: normal to inspection Other: nontender Psych: Affect: normal affect Attitude: cooperative Course Vital Signs Vital signs: Vital Signs Temperature 36.2 C L 07/17/20 12:23 Pulse Rate 96 04
--- NOTE | 2020-07-17 12:38 | PC.NURSE ---
to ct scan
[2020-07-17 13:01] VITALS: BP 132/61; PULSE 84; RESP 26; O2SAT 95
[2020-07-17 13:31] VITALS: BP 140/57; PULSE 83; RESP 16; O2SAT 99
--- NOTE | 2020-07-17 13:58 | PC.NURSE ---
[facility] accepted return ETA 1500 Trip#[id number]
[2020-07-17 14:01] VITALS: BP 137/61; PULSE 82; RESP 22; O2SAT 100
[2020-07-17 14:16] VITALS: BP 138/65; PULSE 80; RESP 25; O2SAT 98
== END 2020-07-17 14:46 ==
PROVIDERS: Emergency Provider Emergency Medicine; PCP Hospitalist
DX: S00.03XA Contusion of scalp, initial encounter (principal); F03.90 Unspecified dementia, unspecified severity, without behavioral disturbance, psychotic disturbance, mood disturbance, and anxiety; E11.9 Type 2 diabetes mellitus without complications; E78.5 Hyperlipidemia, unspecified; E03.9 Hypothyroidism, unspecified; Z87.440 Personal history of urinary (tract) infections; E55.9 Vitamin D deficiency, unspecified; Z79.4 Long term (current) use of insulin; Z79.82 Long term (current) use of aspirin; M50.322 Other cervical disc degeneration at C5-C6 level; F41.9 Anxiety disorder, unspecified; F20.9 Schizophrenia, unspecified; W19.XXXA Unspecified fall, initial encounter
CPT/HCPCS: 70450; 72125; 99284

== ENCOUNTER 2020-09-18 10:12 | Emergency (ER) | payer MEDICARE, MEDICAID, SELFPAY ==
[2020-09-18] VITALS (12 sets, daily range): BP systolic 127–154; BP diastolic 47–70; PULSE 84–94; RESP 13–21; TEMP 36.4; O2SAT 96–100
--- NOTE | ~2020-09-18 | CT_ITS ---
EXAMINATION: CT facial & cervical spine wo EXAM DATE: 09/18/2020 11:16 INDICATION: Frontal head injury, unwitnessed fall. TECHNIQUE: Spiral CT of the facial bones was acquired in the axial plane. Coronal reformatted images were also reviewed. Spiral CT of the cervical spine was performed without contrast. Axial images we re reviewed. Coronal and sagittal reformatted images were also reviewed. The dose-length product (DL P) for this examination was 343.46 mGy-cm. The exposure was tailored according to patient size, and iterative reconstruction (ASIR) was used as additional dose reduction technique. Comparison is made t o prior examination from 07/17/2020. FINDINGS: FACIAL CT: There are no displaced acute nasal bone fractures. The mandible, sinuses and orbits are i ntact. The orbits, globes and extraocular muscles are unremarkable. Some debris in the left sphen oid sinus. Otherwise sinuses and mastoid air cells are well aerated. Mild to moderate left TMJ osteoa rthritis. Probable bilateral cataract surgery. CERVICAL CT: There is no evidence of acute cervical fracture. The odontoid process is intact. Pre-d ens space is normal. Prevertebral soft tissue is normal. There are no soft tissue abnormalities colette ntified. There is no disc space widening or traumatic vertebral body subluxation suspected. Moderat e to severe loss of the C5-6 and 6-7 disc height. The vertebral body heights are maintained. Moderate to severe facet arthropathy. A detailed level by level evaluation of spondylosis can be added as ad dendum if requested. IMPRESSION: 1. No acute facial or cervical fracture. 2. Advanced cervical arthropathy and lower cervical disc disease. There may be some swelling over th e left cheek. Reviewed, dictated and finalized at location A. IMPRESSION: 1. No acute facial or cervical fracture. 2. Advanced cervical arthropathy and lower cervical disc disease. There may be some swelling over the left cheek.
--- NOTE | ~2020-09-18 | XR_ITS ---
XR chest 2V 09/18/2020 11:07 Indication: Ground-level fall. Chest pain. Procedure: 2 view chest Comparison: Comparison to multiple prior studies sequentially, with oldest reviewed study dated 11/2017. Findings: There are interstitial infiltrates of the left mid and bilateral lower lung zones, most of which appear chronic. No significant effusion. No pneumothorax. No acute osseous abnormality. Impression: 1: Coarse interstitial infiltrates of the left mid and bilateral lower lung zones, most of which appe ar chronic. Findings most likely due to combination of fibrosis/atelectasis. Atypical pneumonia less favored Reviewed, dictated and finalized at location B. Impression: 1: Coarse interstitial infiltrates of the left mid and bilateral lower lung zon es, most of which appear chronic. Findings most likely due to combination of fi brosis/atelectasis. Atypical pneumonia less favored
--- NOTE | ~2020-09-18 | CT_ITS ---
EXAMINATION: CT brain wo con EXAM DATE: 09/18/2020 11:16 INDICATION: Unwitnessed fall. Head injury. TECHNIQUE: Spiral CT of the head was performed without contrast. Axial, coronal and sagittal images were reviewed. The dose-length product (DLP) for this examination was 605.33 mGy-cm. The exposure w as tailored according to patient size, and iterative reconstruction (ASIR) was used as additional dos e reduction technique. Comparison is made to prior examination from 07/17/2020. FINDINGS: There is no acute intraparenchymal hemorrhage. No evidence of intraparenchymal brain mass lesion. No evidence of acute infarction. Please note that initial head CT has limited sensitivity f or small or acute infarctions. 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 There is mild p eriventricular and subcortical hypodensity, nonspecific but probably related to small vessel ischemic disease. There is moderate prominence of the sulci and ventricles related to cerebral atrophy. T here is intracranial carotid arteriosclerosis. There are no extra-axial collections. There is no ma ss effect or midline shift. Patient has had left-sided ocular lens surgery. Previously seen right parietal scalp contusion/hematoma has resolved. There is a small right frontal scalp contusion. The visualized sinuses and mastoid air cells are well aerated. Hyperostosis fronta lis. IMPRESSION: 1. No acute intracranial findings. 2. Chronic age related findings. 3. Small right frontal scalp contusion. Reviewed, dictated and finalized at location A.
--- NOTE | 2020-09-18 10:30 | PC.NURSE ---
RADHA Garrett CHARGE NURSE MADE AWARE OF PT'S CONFUSION AND POTENTIAL NEED TO BE PLACED CLOSER TO THE NURSES STATION.
--- NOTE | 2020-09-18 10:31 | ED.FALL ---
HPI - Fall General Chief Complaint: Fall Stated Complaint: unwittnessed fall, laceration Time Seen by Provider: 09/18/20 10:18 Source: patient Mode of arrival: ambulatory Limitations: no limitations History of Present Illness HPI Narrative: Patient is an 80 year old female who presents by EMS s/p unwitnessed fall at care facility at 0200. Per facility report, patient was found face down. Patient has large hematoma to right forehead. Patient is oriented to baseline per report. Patient denies pain and physical exam notes numerous bruising in different stages of healing. Patient appears to not be in pain with palpation of all extremities, hips, abdomen and back. MD complaint: fall Related Data Home Medications Medication Instructions Recorded Confirmed acetaminophen 650 mg PO Q4H PRN 10/19/19 10/19/19 aspirin [Aspirin Childrens] 81 mg PO DAILY 10/19/19 10/19/19 clopidogrel 75 mg PO DAILY 10/19/19 10/19/19 loperamide 2 mg PO QID PRN 10/19/19 10/19/19 Novolin 70/30 U-100 Insulin 8 unit SUBCUT DAILY 09/18/20 Novolin 70/30 U-100 Insulin 8 unit SUBCUT HS 09/18/20 aripiprazole mg 09/18/20 atorvastatin 09/18/20 divalproex PO 09/18/20 famotidine 09/18/20 levothyroxine 09/18/20 lisinopril 09/18/20 metformin mg 09/18/20 metoprolol succinate PO 09/18/20 mirtazapine mg 09/18/20 pantoprazole PO 09/18/20 Allergies Allergy/AdvReac Type Severity Reaction Status Date / Time Penicillins Allergy Mild Unknown Verified 09/18/20 10:31 sulfamethoxazole Allergy Unknown Unknown Verified 09/18/20 10:31 trimethoprim Allergy Unknown Unknown Verified 09/18/20 10:31 Review of Systems Review of Systems: Narrative: CONSTITUTIONAL: Denies fever, chills, or sweats. EYES: Denies visual changes, redness, or discharge. ENT: Denies rhinorrhea, congestion, sore throat, or otalgia. CARDIOVASCULAR: Denies chest pain, palpitations, or edema. RESPIRATORY: Denies cough or dyspnea. GASTROINTESTINAL: Denies abdominal pain, nausea, vomiting, or diarrhea. GENITOURINARY: Denies dysuria or hematuria. SKIN: Hematoma to right forehead MUSCULOSKELETAL: Denies back pain, joint pain, or myalgia. NEUROLOGIC: Denies headache, numbness, dizziness, or weakness. PSYCHIATRIC: Denies anxiety or depression. Patient at baseline mentation [facility] Past Medical History Medical History Anxiety Congestive heart failure Poorly documented history of such. Dementia Gastroesophageal reflux disease Hyperlipidemia Hypertension Hypothyroidism Insulin dependent type 2 diabetes mellitus Schizophrenia Urinary tract infection due to extended-spectrum beta lactamase (ESBL) producing Escherichia coli Vitamin D deficiency Surgical History Surgical History History of cholecystectomy History of hysterectomy Family History Family History Father Tuberculosis Mother Tuberculosis Other Cancer Social History Social History Social History: She is a long-term resident at [facility]. Her daughter, Angela Gardner, is her healthcare power of ip technology transactions attorney. No mention of alcohol, tobacco, or drug use. Smoking status: Unknown if ever smoked Alcohol intake: never Substance use: never Gender identity (if verbalized by the patient): Female Spiritual care concerns: No Comments At the time of signature, I have reviewed and agree with nursing past medical, surgical, social, and family history unless otherwise noted. Please see nursing chart for further information. There is no relevant family history pertinent to the presenting complaint. Exam Narrative: Exam Narrative: GENERAL: Well-appearing, well-nourished, and in no acute distress. HEAD: Normocephalic, atraumatic. EYES: EOMI. No redness or drainage. Conjunctiva are normal. E
--- NOTE | 2020-09-18 10:33 | ECG_ITS ---
Measurements Intervals [place] Rate: 92 P: 54 [place]: 146 QRS: -36 QRSD: 130 T: 94 QT: 389 QTc: 483 Interpretive Statements SINUS RHYTHM LEFT AXIS DEVIATION LEFT BUNDLE BRANCH BLOCK ABNORMAL ECG Electronically Signed On 09-18-2020 13:42:14 CDT by Cesar Meier D.O.
[2020-09-18 10:50] LABS: Basophils Percent Auto 0.3 % (0.2-1.2); Eosinophils Percent Auto 0.6 % (0-4.4); Hematocrit 32.9 % (37.0-47.0); Hemoglobin 11.1 g/dL (12.0-15.0); Immature Granulocyte Absolute 0.05 K/mm3 (0.00-0.031); Immature Granulocyte Percent A 0.7 % (0-0.5); Lymphocytes Absolute Auto 2.23 K/mm3 (0.9-3.2); Lymphocytes Percent Auto 30.8 % (18.3-44.2); Mean Corpuscular HGB Conc 33.7 g/dl (32-36); Mean Corpuscular Hemoglobin 31.2 pg (26-34); Mean Corpuscular Volume 92.4 fl (80-100); Mean Platelet Volume 11.4 fl (7.4-10.4); Monocytes Absolute Auto 0.9 K/mm3 (0.1-0.6); Monocytes Percent Auto 11.9 % (2.6-8.5); Neutrophils Absolute Auto 4.1 K/mm3 (1.3-6.7); Neutrophils Percent Auto 55.7 % (45.5-73.1); Platelet Count Result 145 k/mm3 (150-375); Red Blood Count 3.56 M/mm3 (4.2-5.4); Red Cell Distribution Width 13.2 % (11.5-14.5); White Blood Count 7.3 K/mm3 (4.5-10.0)
[2020-09-18 11:00] LABS: Alanine Aminotransferase 21 U/L (4-35); Albumin Level 3.3 g/dL (3.5-5.1); Alkaline Phosphatase 111 U/L (38-126); Anion Gap 7 mmol/L (8-16); Aspartate Amino Transferase 34 U/L (14-36); Bilirubin,Total 0.2 mg/dL (0.2-1.3); Blood Urea Nitrogen 12 mg/dL (7-17); Calcium 9.1 mg/dL (8.4-10.2); Carbon Dioxide 25 mmol/L (22-30); Chloride 101 mmol/L (98-107); Estimated Glomerular Filt Rate > 60; Glucose 219 mg/dL (65-105); Potassium 5.3 mmol/L (3.4-5.0); Sodium 133 mmol/L (137-145)
[2020-09-18 11:11] LABS: Troponin I 0.024 ng/mL (0.000-0.034)
[2020-09-18 12:06] LABS: Add Urine Microscopic? YES; Appearance Urine Clear (Clear); Bilirubin Urine Negative (Negative); Blood Urine Negative (Negative); Color Urine Yellow (Yellow); Glucose Urine UA 1+ mg/dL (Negative); Ketones Urine Trace mg/dL (Negative); Leukocyte Esterase Ur Negative LEU/UL (Negative); Mucus Urine Rare /lpf; Nitrate Urine Negative (Negative); Protein Urine Negative (Negative); RBC Urine 0-2 /hpf (0-2); Specific Grav Ur 1.017 (1.001-1.035); Urobilinogen Urine Negative mg/dL (<2.0); WBC Urine 0-3 /hpf
--- NOTE | 2020-09-18 13:21 | PC.NURSE ---
[facility] accepted return to half-way ETA 1500 Trip # [id number]
--- NOTE | 2020-09-18 13:30 | PC.NURSE ---
Report given to Tomás Shane RN.
== END 2020-09-18 15:12 ==
PROVIDERS: Emergency Provider Nurse Practitioner
DX: S00.83XA Contusion of other part of head, initial encounter (principal); F03.90 Unspecified dementia, unspecified severity, without behavioral disturbance, psychotic disturbance, mood disturbance, and anxiety; E78.5 Hyperlipidemia, unspecified; I10 Essential (primary) hypertension; E03.9 Hypothyroidism, unspecified; E11.9 Type 2 diabetes mellitus without complications; E55.9 Vitamin D deficiency, unspecified; K21.9 Gastro-esophageal reflux disease without esophagitis; Z79.4 Long term (current) use of insulin; Z79.82 Long term (current) use of aspirin; Z87.440 Personal history of urinary (tract) infections; M50.90 Cervical disc disorder, unspecified, unspecified cervical region; M47.812 Spondylosis without myelopathy or radiculopathy, cervical region; I44.7 Left bundle-branch block, unspecified; R91.8 Other nonspecific abnormal finding of lung field; W19.XXXA Unspecified fall, initial encounter
CPT/HCPCS: 36415; 70450; 70486; 71046; 72125; 80053; 81001; 84484; 85025; 93005; 99284

== ENCOUNTER 2022-03-25 13:39 | Emergency (ER) | payer MEDICARE, MEDICAID, SELFPAY ==
[2022-03-25] VITALS (22 sets, daily range): BP systolic 113–148; BP diastolic 31–88; PULSE 74–90; RESP 12–25; TEMP 36.6; O2SAT 98–100
[2022-03-25 14:11] LABS: Alanine Aminotransferase 26 U/L (6-35); Alkaline Phosphatase 111 U/L (38-126); Anion Gap 6 mmol/L (8-16); Aspartate Amino Transferase 28 U/L (14-36); Bilirubin,Total 0.2 mg/dL (0.2-1.3); Blood Urea Nitrogen 24 mg/dL (7-17); Calcium 8.8 mg/dL (8.4-10.2); Carbon Dioxide 28 mmol/L (22-30); Chloride 96 mmol/L (98-107); Estimated Glomerular Filt Rate 53; Glucose 270 mg/dL (65-110); Potassium 5.4 mmol/L (3.4-5.0); Sodium 130 mmol/L (137-145)
--- NOTE | 2022-03-25 14:38 | ED.GENADULT ---
HPI - General Adult General Chief complaint: Recheck/Abnormal Lab/Rx Stated complaint: abnormal labs Time Seen by Provider: 03/25/22 13:45 History of Present Illness HPI narrative: 81-year-old demented female presents from custodial for evaluation of hyperkalemia. Patient had labs drawn at the facility was noted to have a potassium of 6.1. No meaningful history obtained on arrival and has been reported that this is patient's baseline. Repeat labs have been drawn. Related Data Home Medications Medication Instructions Recorded Confirmed acetaminophen 325 mg tablet 650 mg PO Q4H PRN Headache 10/19/19 10/19/19 aspirin 81 mg chewable tablet 81 mg PO DAILY 10/19/19 10/19/19 (Aspirin Childrens) clopidogrel 75 mg tablet 75 mg PO DAILY 10/19/19 10/19/19 loperamide 2 mg tablet 2 mg PO QID PRN Diarrhea 10/19/19 10/19/19 aripiprazole 5 mg tablet mg 09/18/20 atorvastatin 40 mg tablet 09/18/20 divalproex 250 mg tablet,extended PO 09/18/20 release 24 hr famotidine 20 mg tablet 09/18/20 insulin human U-100 NPH-regulr 8 unit subcut DAILY 09/18/20 70-30 mix 100 unit/mL subcutaneous susp (Novolin 70/30 U-100 Insulin) insulin human U-100 NPH-regulr 8 unit subcut HS 09/18/20 70-30 mix 100 unit/mL subcutaneous susp (Novolin 70/30 U-100 Insulin) levothyroxine 100 mcg tablet 09/18/20 lisinopril 2.5 mg tablet 09/18/20 metformin 1,000 mg tablet mg 09/18/20 metoprolol succinate 50 mg PO 09/18/20 tablet,extended release 24 hr mirtazapine 7.5 mg tablet mg 09/18/20 pantoprazole 20 mg tablet,delayed PO 09/18/20 release Allergies Allergy/AdvReac Type Severity Reaction Status Date / Time Penicillins Allergy Mild Unknown Verified 09/18/20 10:31 sulfamethoxazole Allergy Unknown Unknown Verified 09/18/20 10:31 trimethoprim Allergy Unknown Unknown Verified 09/18/20 10:31 Review of Systems Review of Systems: Unable to obtain [facility] Past Medical History Medical History Anxiety Congestive heart failure Poorly documented history of such. Dementia Gastroesophageal reflux disease Hyperlipidemia Hypertension Hypothyroidism Insulin dependent type 2 diabetes mellitus Schizophrenia Urinary tract infection due to extended-spectrum beta lactamase (ESBL) producing Escherichia coli Vitamin D deficiency Surgical History Surgical History History of cholecystectomy History of hysterectomy Family History Family History Father Tuberculosis Mother Tuberculosis Other Cancer Social History Social History Social History: She is a long-term resident at [facility]. Her daughter, Angela Gardner, is her healthcare power of trust and estates attorney. No mention of alcohol, tobacco, or drug use. Smoking status: Unknown if ever smoked Alcohol intake: never Substance use: never Gender identity (if verbalized by the patient): Female Spiritual care concerns: No Exam Narrative: GENERAL: Well-appearing, well-nourished, and in no acute distress. HEAD: Normocephalic, atraumatic. EYES: PERRLA and EOMI. ENT: Nares clear, no rhinorrhea or epistaxis. Mucous membranes moist. NECK: Supple. CHEST: Clear to auscultation. No respiratory distress. HEART: Regular rate and rhythm. No murmur heard. Normal peripheral pulses. ABDOMEN: Soft, nontender, nondistended, normal active bowel sounds. EXTREMITIES: Normal range of motion. No edema. SKIN: Warm, dry, no rash. NEURO: No focal deficits. Alert and disoriented . Course Vital Signs Vital signs: Vital Signs Temperature 97.8 F 03/25/22 13:40 Pulse Rate 88 03/25/22 13:40 Respiratory Rate 14 03/25/22 13:40 Blood Pressure 148/64 H 03/25/22 13:40 Pulse Oximetry 98 03/25/22 13:40 Oxygen Delivery Room Air 03/25/22 13
[2022-03-25 14:55] LABS: Basophils Percent Auto 0.3 % (0.2-1.2); Eosinophils Absolute Auto 0.1 K/mm3 (0-0.3); Eosinophils Percent Auto 0.5 % (0-4.4); Hematocrit 33.2 % (37.0-47.0); Hemoglobin 10.8 g/dL (12.0-15.0); Immature Granulocyte Absolute 0.22 K/mm3 (0.00-0.031); Immature Granulocyte Percent A 1.9 % (0-0.5); Lymphocytes Absolute Auto 4.17 K/mm3 (0.9-3.2); Lymphocytes Percent Auto 36.2 % (18.3-44.2); Mean Corpuscular HGB Conc 32.5 g/dl (32-36); Mean Corpuscular Hemoglobin 30.3 pg (26-34); Mean Platelet Volume 12.1 fl (7.4-10.4); Monocytes Absolute Auto 1.3 K/mm3 (0.1-0.6); Monocytes Percent Auto 11.2 % (2.6-8.5); Neutrophils Absolute Auto 5.8 K/mm3 (1.3-6.7); Neutrophils Percent Auto 49.9 % (45.5-73.1); Platelet Count Result 156 k/mm3 (150-375); Red Blood Count 3.57 M/mm3 (4.2-5.4); Red Cell Distribution Width 13.5 % (11.5-14.5); White Blood Count 11.5 K/mm3 (4.5-10.0)
--- NOTE | 2022-03-25 15:01 | ECG_ITS ---
Measurements Intervals [place] Rate: 81 P: 79 [place]: 144 QRS: -48 QRSD: 130 T: 54 QT: 414 QTc: 482 Interpretive Statements SINUS RHYTHM MARKED LEFT AXIS DEVIATION [QRS AXIS < -30] LEFT BUNDLE BRANCH BLOCK [120+ ms QRS DURATION, 80+ ms Q/S IN V1/V2, 85+ ms R IN I/aVL/V5/V6] COMPARED TO ECG 09/18/2020 10:21:36 NO SIGNIFICANT CHANGES Electronically Signed On 03-25-2022 16:12:15 [employer]GER [employer] by Wendy Corrales M.D.
[2022-03-25] MEDS: FUROSEMIDE INJ 40 MG/4 ML VIAL 20 MG IV PUSH (15:40)
== END 2022-03-25 20:19 | disposition home or self-care (01) ==
PROVIDERS: Emergency Provider Emergency Medicine
DX: E87.5 Hyperkalemia (principal); F03.90 Unspecified dementia, unspecified severity, without behavioral disturbance, psychotic disturbance, mood disturbance, and anxiety; E78.5 Hyperlipidemia, unspecified; I10 Essential (primary) hypertension; E11.9 Type 2 diabetes mellitus without complications; E03.9 Hypothyroidism, unspecified; E55.9 Vitamin D deficiency, unspecified; K21.9 Gastro-esophageal reflux disease without esophagitis; Z90.710 Acquired absence of both cervix and uterus; Z87.440 Personal history of urinary (tract) infections; Z79.4 Long term (current) use of insulin; Z79.84 Long term (current) use of oral hypoglycemic drugs; Z79.82 Long term (current) use of aspirin
CPT/HCPCS: 36415; 80053; 85025; 93005; 96374; 99284; J1940

== ENCOUNTER 2022-08-27 09:55 | Emergency (ER) | payer MEDICARE, MEDICAID, SELFPAY ==
[2022-08-27] VITALS (10 sets, daily range): BP systolic 136–157; BP diastolic 58–95; PULSE 74–114; RESP 13–18; TEMP 36.6–36.8; O2SAT 94–99
--- NOTE | ~2022-08-27 | XR_ITS ---
EXAMINATION: XR chest 1V portable DATE: 08/27/2022 11:19 INDICATION: Leukocytosis. TECHNIQUE: A single frontal view of the chest was obtained on 2 radiographs. COMPARISON: Chest 2 views 09/18/2020 FINDINGS: A calcified right lung nodule is consistent with old granulomatous disease. There is mild s carring in left midlung zone. There is mild atelectasis versus scarring in the lower lung zones. No p leural effusion or pneumothorax. Cardiomegaly is noted. There are old healed rib fractures bilaterall y. Surgical clips in the right upper quadrant are likely from cholecystectomy. There is a 4 cm linear density overlying the aortic arch that may be outside the patient. IMPRESSION: 1. Mild atelectasis versus scarring in the lower lung zones. Mild scarring in left midlung zone. 2. Cardiomegaly. 3. 4 cm linear density overlying the aortic arch that may be outside the patient. Reviewed, dictated and finalized at location A. IMPRESSION: 1. Mild atelectasis versus scarring in the lower lung zones. Mild scarring in l eft midlung zone. 2. Cardiomegaly. 3. 4 cm linear density overlying the aortic arch that may be outside the patien t.
[2022-08-27 10:17] LABS: Glucose Point of Care 250 mg/dl (65-105)
--- NOTE | 2022-08-27 10:19 | ECG_ITS ---
Measurements Intervals [place] Rate: 93 P: 89 [place]: 153 QRS: -36 QRSD: 129 T: 89 QT: 390 QTc: 487 Interpretive Statements SINUS RHYTHM LEFT AXIS DEVIATION LEFT BUNDLE BRANCH BLOCK ABNORMAL ECG COMPARED TO ECG 03/25/2022 15:07:27 NO SIGNIFICANT CHANGES Electronically Signed On 08-27-2022 11:46:39 CDT by Cesar Meier D.O.
[2022-08-27 11:04] LABS: Appearance Urine Clear (Clear); Bilirubin Urine Negative (Negative); Blood Urine Negative (Negative); Color Urine Yellow (Yellow); Glucose Urine UA Negative (Negative); Ketones Urine Trace mg/dL (Negative); Leukocyte Esterase Ur Negative LEU/UL (Negative); Nitrate Urine Negative (Negative); Protein Urine Negative (Negative); Specific Grav Ur 1.015 (1.001-1.035); pH Urine 7.5 (5.0-9.0)
[2022-08-27 11:06] LABS: Basophils Absolute Auto 0.1 K/mm3 (0.0-0.1); Basophils Percent Auto 0.5 % (0.2-1.2); Eosinophils Absolute Auto 0.1 K/mm3 (0-0.3); Eosinophils Percent Auto 0.9 % (0-4.4); Hematocrit 35.1 % (37.0-47.0); Hemoglobin 11.5 g/dL (12.0-15.0); Immature Granulocyte Absolute 0.17 K/mm3 (0.00-0.031); Immature Granulocyte Percent A 1.7 % (0-0.5); Immature Platelet Fraction Pct 10.9 % (0.9-11.2); Lymphocytes Absolute Auto 4.03 K/mm3 (0.9-3.2); Lymphocytes Percent Auto 39.2 % (18.3-44.2); Mean Corpuscular HGB Conc 32.8 g/dl (32-36); Mean Corpuscular Volume 94.6 fl (80-100); Mean Platelet Volume 11.2 fl (7.4-10.4); Monocytes Percent Auto 10.1 % (2.6-8.5); Neutrophils Absolute Auto 4.9 K/mm3 (1.3-6.7); Neutrophils Percent Auto 47.6 % (45.5-73.1); Platelet Count Result 146 k/mm3 (150-375); Red Blood Count 3.71 M/mm3 (4.2-5.4); Red Cell Distribution Width 14.1 % (11.5-14.5); White Blood Count 10.3 K/mm3 (4.5-10.0)
[2022-08-27 11:20] LABS: Lactic Acid Reflex 3.8 mmol/L (0.7-2.0)
[2022-08-27 11:21] LABS: Alanine Aminotransferase 22 U/L (6-35); Albumin Level 3.8 g/dL (3.5-5.1); Alkaline Phosphatase 132 U/L (38-126); Anion Gap 7 mmol/L (8-16); Aspartate Amino Transferase 29 U/L (14-36); Bilirubin,Total 0.3 mg/dL (0.2-1.3); Blood Urea Nitrogen 22 mg/dL (7-17); Carbon Dioxide 31 mmol/L (22-30); Chloride 98 mmol/L (98-107); Estimated CRCL calculation 41 ml/min; Estimated Glomerular Filt Rate 60; Glucose 253 mg/dL (65-110); Potassium 5.3 mmol/L (3.4-5.0); Sodium 136 mmol/L (137-145)
[2022-08-27 11:24] LABS: Add Urine Microscopic? NO
[2022-08-27 11:40] LABS: Influenza A QL RT-PCR Negative (Negative); Influenza B QL RT-PCR Negative (Negative); RSV RNA, RT-PCR Negative (Negative); SARS-CoV-2 RNA PCR Negative (Negative)
--- NOTE | 2022-08-27 12:27 | ED.RECABL ---
HPI - Recheck/Abnormal Lab/Rx General Chief Complaint: Recheck/Abnormal Lab/Rx Stated Complaint: abnormal labs, noncompliant with meds Time Seen by Provider: 08/27/22 11:48 History of Present Illness HPI narrative: 82-year-old female here for evaluation from her nursing facility due to elevated white blood cell count of 13 obtained yesterday on labs. Patient does not provide any reliable history as she is baseline ANO 0. Spoke with the nurse at the nursing facility who confirmed that this is her baseline. Patient has not been complaining of any pain or any symptoms recently. Has been refusing her insulin at the facility. Related Data Home Medications Medication Instructions Recorded Confirmed acetaminophen 325 mg tablet 650 mg PO Q4H PRN Headache 10/19/19 10/19/19 aspirin 81 mg chewable tablet 81 mg PO DAILY 10/19/19 10/19/19 (Aspirin Childrens) clopidogrel 75 mg tablet 75 mg PO DAILY 10/19/19 10/19/19 loperamide 2 mg tablet 2 mg PO QID PRN Diarrhea 10/19/19 10/19/19 aripiprazole 5 mg tablet mg 09/18/20 atorvastatin 40 mg tablet 09/18/20 divalproex 250 mg tablet,extended PO 09/18/20 release 24 hr famotidine 20 mg tablet 09/18/20 insulin human U-100 NPH-regulr 8 unit subcut DAILY 09/18/20 70-30 mix 100 unit/mL subcutaneous susp (Novolin 70/30 U-100 Insulin) insulin human U-100 NPH-regulr 8 unit subcut HS 09/18/20 70-30 mix 100 unit/mL subcutaneous susp (Novolin 70/30 U-100 Insulin) levothyroxine 100 mcg tablet 09/18/20 lisinopril 2.5 mg tablet 09/18/20 metformin 1,000 mg tablet mg 09/18/20 metoprolol succinate 50 mg PO 09/18/20 tablet,extended release 24 hr mirtazapine 7.5 mg tablet mg 09/18/20 pantoprazole 20 mg tablet,delayed PO 09/18/20 release Allergies Allergy/AdvReac Type Severity Reaction Status Date / Time Penicillins Allergy Mild Unknown Verified 09/18/20 10:31 sulfamethoxazole Allergy Unknown Unknown Verified 09/18/20 10:31 trimethoprim Allergy Unknown Unknown Verified 06/10/21 10:31 Review of Systems Review of Systems: Gen.: Denies fevers or chills Eyes: Denies eye pain or visual change ENT: Denies congestion Respiratory: Denies shortness of breath or cough CV: Denies chest pain or palpitations GI: Denies abdominal pain nausea, emesis or diarrhea denies burning, urgency, frequency or hematuria Musculoskeletal: Denies back pain or muscle pain Neuro: Denies numbness, tingling, weakness or focal weakness Skin: Denies rash Except as documented, all other systems reviewed and negative [facility] Past Medical History Medical History Anxiety Congestive heart failure Poorly documented history of such. Dementia Gastroesophageal reflux disease Hyperlipidemia Hypertension Hypothyroidism Insulin dependent type 2 diabetes mellitus Schizophrenia Urinary tract infection due to extended-spectrum beta lactamase (ESBL) producing Escherichia coli Vitamin D deficiency Surgical History Surgical History History of cholecystectomy History of hysterectomy Family History Family History Father Tuberculosis Mother Tuberculosis Other Cancer Social History Social History Social History: She is a long-term resident at [facility]. Her daughter, Angela Gardner, is her healthcare power of energy attorney. No mention of alcohol, tobacco, or drug use. Smoking status: Unknown if ever smoked Alcohol intake: never Substance use: never Gender identity (if verbalized by the patient): Female Spiritual care concerns: No Exam Narrative: Gen: Alert and oriented x0. No acute distress. Eyes: EOMI, no icterus Pulm: Respirations even and unlabored, symmetric thorax expansion, no audible stridor or visible cyanosis CV: Regular r
[2022-08-27] MEDS: SODIUM CHLORIDE 0.9% IV 1,000 ML 999 ML IV CONT (12:57)
[2022-08-27 13:58] LABS: Reflex Lactic Acid Yes or No Add Lactic
[2022-08-27 14:26] LABS: Glucose Point of Care 136 mg/dl (65-105)
[2022-08-27 14:33] LABS: Lactic Acid Reflex 2.7 mmol/L (0.7-2.0)
--- NOTE | 2022-08-27 17:39 | PC.NURSE ---
clara attempts to reach [facility] [phone] to give report pt will return to [place] by ambulance
--- NOTE | 2022-08-27 17:41 | PC.NURSE ---
Multiple calls attempted to reach [place] [place] to give report left on hold for 10 minutes 1st call, 4minutes 2nds call, answering machine 3rd and 4th call. Daughter Marlen updated
== END 2022-08-27 20:20 ==
PROVIDERS: Emergency Medicine; Emergency Provider Physician Assistant
DX: D72.829 Elevated white blood cell count, unspecified (principal); Z20.822 Contact with and (suspected) exposure to COVID-19; F03.90 Unspecified dementia, unspecified severity, without behavioral disturbance, psychotic disturbance, mood disturbance, and anxiety; E78.5 Hyperlipidemia, unspecified; I10 Essential (primary) hypertension; E03.9 Hypothyroidism, unspecified; E11.9 Type 2 diabetes mellitus without complications; K21.9 Gastro-esophageal reflux disease without esophagitis; E55.9 Vitamin D deficiency, unspecified; F20.9 Schizophrenia, unspecified; F41.9 Anxiety disorder, unspecified; Z87.440 Personal history of urinary (tract) infections; Z79.4 Long term (current) use of insulin; Z79.84 Long term (current) use of oral hypoglycemic drugs; Z79.82 Long term (current) use of aspirin; Z90.49 Acquired absence of other specified parts of digestive tract; Z90.710 Acquired absence of both cervix and uterus
CPT/HCPCS: 36415; 71045; 80053; 81001; 81003; 82948; 83605; 85025; 85055; 87637; 93005; 96360; 99283; J7030

== ENCOUNTER 2022-11-23 21:32 | Emergency (ER) | payer MEDICARE, MEDICAID, SELFPAY ==
--- NOTE | 2022-11-23 | ECG_ITS ---
Measurements Intervals [place] Rate: 100 P: 105 ID: [id number] QRS: -44 QRSD: 129 T: 73 QT: 386 QTc: 499 Interpretive Statements SINUS TACHYCARDIA LEFT AXIS DEVIATION LEFT BUNDLE BRANCH BLOCK ABNORMAL ECG COMPARED TO ECG 08/27/2022 10:40:43 SINUS TACHYCARDIA NOW PRESENT Electronically Signed On 11-24-2022 15:19:32 CDT by Dank Mckeon M.D.
--- NOTE | ~2022-11-23 | XR_ITS ---
EXAMINATION: XR chest 1V portable Exam Date/Time: 11/23/2022 21:45 CDT HISTORY: confusion Comparison: 08/27/2022. RESULT: Lines, tubes, and devices: None. Lungs and pleura: Moderate diffuse reticular opacities worse in the mid and lower lung zones, with i ndistinct vascular margins. Subsegmental left basilar airspace disease. Right lower lobe granuloma. L eft midlung scar. Cardiomediastinal silhouette: Stable. Other: No acute osseous or upper abdominal finding. Scattered soft tissue calcifications over the ri ght shoulder. IMPRESSION: Pulmonary opacities likely represent moderate pulmonary edema. Left basilar atelectasis/consolidation . Reviewed, dictated and finalized at location K. IMPRESSION: Pulmonary opacities likely represent moderate pulmonary edema. Left basilar ate lectasis/consolidation.
[2022-11-23 21:33] VITALS: BP 168/74; PULSE 106; RESP 15; TEMP 36.4; O2SAT 97
[2022-11-23] MEDS: HALOPERIDOL LACTATE 5 MG/ML VIAL IM (22:00)
[2022-11-23] MEDS: SODIUM CHLORIDE 0.9% IV 1,000 ML 999 ML IV CONT (22:27)
[2022-11-23 22:35] LABS: Basophils Absolute Auto 0.1 K/mm3 (0.0-0.1); Basophils Percent Auto 0.5 % (0.2-1.2); Eosinophils Absolute Auto 0.1 K/mm3 (0-0.3); Eosinophils Percent Auto 1.1 % (0-4.4); Hematocrit 27.4 % (37.0-47.0); Hemoglobin 8.4 g/dL (12.0-15.0); Immature Granulocyte Absolute 0.08 K/mm3 (0.00-0.031); Immature Granulocyte Percent A 0.8 % (0-0.5); Lymphocytes Percent Auto 43.8 % (18.3-44.2); Mean Corpuscular HGB Conc 30.7 g/dl (32-36); Mean Corpuscular Hemoglobin 26.5 pg (26-34); Mean Corpuscular Volume 86.4 fl (80-100); Monocytes Absolute Auto 1.3 K/mm3 (0.1-0.6); Monocytes Percent Auto 12.8 % (2.6-8.5); Platelet Count Result 149 k/mm3 (150-375); Red Blood Count 3.17 M/mm3 (4.2-5.4); Red Cell Distribution Width 15.4 % (11.5-14.5); White Blood Count 9.8 K/mm3 (4.5-10.0)
[2022-11-23 22:36] LABS: Appearance Urine Clear (Clear); Bilirubin Urine Negative (Negative); Blood Urine Negative (Negative); Color Urine Yellow (Yellow); Glucose Urine UA 2+ mg/dL (Negative); Ketones Urine Trace mg/dL (Negative); Leukocyte Esterase Ur Negative LEU/UL (Negative); Nitrate Urine Negative (Negative); Protein Urine Negative (Negative); Specific Grav Ur 1.018 (1.001-1.035); Urobilinogen Urine 0.2 mg/dL (<2.0); pH Urine 5.5 (5.0-9.0)
[2022-11-23 22:46] LABS: Alanine Aminotransferase 20 U/L (6-35); Albumin Level 3.4 g/dL (3.5-5.1); Alkaline Phosphatase 120 U/L (38-126); Anion Gap 1 mmol/L (8-16); Aspartate Amino Transferase 23 U/L (14-36); Bilirubin,Total 0.2 mg/dL (0.2-1.3); Blood Urea Nitrogen 17 mg/dL (7-17); Calcium 8.6 mg/dL (8.4-10.2); Carbon Dioxide 23 mmol/L (22-30); Chloride 107 mmol/L (98-107); Estimated CRCL calculation 41 ml/min; Estimated Glomerular Filt Rate 60; Glucose 227 mg/dL (65-110); Lipase 102 U/L (23-300); Magnesium 1.6 mg/dL (1.6-2.3); Potassium 5.1 mmol/L (3.4-5.0); Sodium 131 mmol/L (137-145)
[2022-11-23 22:47] LABS: Lactic Acid Reflex 1.5 mmol/L (0.7-2.0)
[2022-11-23 22:49] LABS: INR 1.1; Prothrombin Time 15.1 Seconds (11.1-14.7)
[2022-11-23 22:50] LABS: Add Urine Microscopic? NO
[2022-11-23 22:50] LABS: Partial Thromboplastin Time 32.7 SECONDS (22.3-36.8)
[2022-11-23 22:53] LABS: Creatine Kinase 47 U/L (30-135)
[2022-11-23 22:54] LABS: NT Pro B Type Natriuretic Pept 1120 pg/mL (19.9-100)
[2022-11-23 22:59] LABS: Troponin I 0.038 ng/mL (0.000-0.034)
[2022-11-23 23:11] LABS: Influenza A QL RT-PCR Negative (Negative); Influenza B QL RT-PCR Negative (Negative); RSV RNA, RT-PCR Negative (Negative); SARS-CoV-2 RNA PCR Negative (Negative)
[2022-11-23 23:56] VITALS: BP 158/90; PULSE 94; RESP 15; O2SAT 97
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
[2022-11-24 01:49] LABS: Troponin I 0.043 ng/mL (0.000-0.034)
[2022-11-24 01:54] VITALS: BP 144/62; PULSE 88; RESP 15; O2SAT 96
[2022-11-24 01:54] LABS: Free T4 Free Thyroxine Reflex 1.55 ng/dL (0.78-2.19)
[2022-11-24 02:42] LABS: Total Triiodothyronine (T3) 1.09 NG/ML (0.97-1.69)
[2022-11-24 03:53] VITALS: BP 106/48; PULSE 94; RESP 15; O2SAT 99
== END 2022-11-24 04:17 ==
PROVIDERS: Emergency Provider Emergency Medicine
DX: F03.90 Unspecified dementia, unspecified severity, without behavioral disturbance, psychotic disturbance, mood disturbance, and anxiety (principal); R45.6 Violent behavior; D64.9 Anemia, unspecified; R77.8 Other specified abnormalities of plasma proteins; Z20.822 Contact with and (suspected) exposure to COVID-19; E78.5 Hyperlipidemia, unspecified; E03.9 Hypothyroidism, unspecified; E11.9 Type 2 diabetes mellitus without complications; K21.9 Gastro-esophageal reflux disease without esophagitis; E55.9 Vitamin D deficiency, unspecified; F20.9 Schizophrenia, unspecified; F41.9 Anxiety disorder, unspecified; Z90.49 Acquired absence of other specified parts of digestive tract; Z90.710 Acquired absence of both cervix and uterus; Z79.4 Long term (current) use of insulin; Z79.82 Long term (current) use of aspirin; R00.0 Tachycardia, unspecified; I44.7 Left bundle-branch block, unspecified; R91.8 Other nonspecific abnormal finding of lung field
CPT/HCPCS: 36415; 71045; 80053; 81003; 82550; 83605; 83690; 83735; 83880; 84439; 84443; 84480; 84484; 85025; 85610; 85730; 87040; 87637; 93005; 96360; 96372; 99284; J1630; J7030